=== PATIENT | male | born 1965 | race Hispanic/Latino ===

== ENCOUNTER 2018-07-13 08:39 | Emergency (ER) | payer OTHER ==
[2018-07-13] MEDS ORDERED: Adacel (T-DAP) 0.5 ML SYRINGE ONE (09:16)
--- NOTE | 2018-07-13 09:33 | RAD ---
RIGHT FOOT 3 VIEWS: HISTORY: Injury, right foot pain FINDINGS: No fracture-dislocation is seen. A small radiopaque density suspicious for foreign body is seen in th e soft tissues of the second digit at the medial aspect of the proximal metaphysis of the proximal phalanx.
[2018-07-13] MEDS ORDERED: CEFAZOLIN 1 GM VIAL ONE (09:38)
[2018-07-13] MEDS ORDERED: Ketorolac Tromethamine 30 MG/ML VIAL ONE (09:42)
[2018-07-13] MEDS ORDERED: Morphine 4 MG/ML VIAL ONE (09:42)
[2018-07-13 10:05] LABS: ALT (SGPT) 18 U/L (8-55); AST (SGOT) 22 U/L (5-34); Albumin 4.6 g/dL (3.5-5.0); Alkaline Phosphatase 76 U/L (40-150); Anion Gap 11 mmol/L (10-20); BUN (Urea Nitrogen) 11 mg/dL (8.4-25.7); Bilirubin, Total 0.6 mg/dL (0.2-1.2); Calc. Creatinine Clearance 0 mL/min (70-130); Calcium 9.5 mg/dL (7.8-10.44); Carbon Dioxide 23 mmol/L (22-29); Chloride 106 mmol/L (98-107); Estimated GFR-MDRD Greater than 90; Glucose 120 mg/dL (70-105); Potassium 4.2 mmol/L (3.5-5.1); Protein, Total 7.6 g/dL (6.0-8.3); Sodium 136 mmol/L (136-145)
[2018-07-13 10:11] LABS: #Eosinphils 0.2 thou/uL (0.0-0.7); #Lymphocytes 1.3 thou/uL (1.20-3.40); #Monocytes 0.5 thou/uL (0.11-0.59); #Neutrophils 1.9 thou/uL (1.40-6.50); %Eosinophils 5.8 % (0.0-10.0); %Lymphocytes 33.2 % (21.0-51.0); %Monocytes 11.4 % (0.0-10.0); %Neutrophils 48.6 % (42.0-75.0); Mean Corpuscular HGB CONC 34.9 g/dL (32.0-36.0); Mean Corpuscular Hemoglobin 31.8 pg (27.0-31.0); Mean Platelet Volume 8.5 fL (7.4-10.4); Platelet Count 185 thou/uL (130-400); Red Blood Cell (RBC) Count 5.03 mill/uL (4.70-6.10); White Blood Cell (WBC) Count 3.9 thou/uL (4.8-10.8)
[2018-07-13] MEDS ORDERED: Lidocaine 1% (PF) 30 ML VIAL ONE (11:02)
--- NOTE | 2018-07-13 11:34 | CON ---
DATE OF CONSULTATION: 07/13/2018 This is Mey Chris PA-C dictating a report for Anastacio Welsh MD. CONSULTING PHYSICIAN: Dr. Anastacio Welsh. REASON FOR CONSULTATION: Right foot injury. HISTORY OF PRESENT ILLNESS: This is a 53-year-old male, who presented to the emergency department today after an injury at work this morning when he states he dropped a chainsaw on his right foot. This cut through his shoe and then cut his foot. He reports difficulty with walking. Pain is worse with movement and relieved with rest. No numbness or tingling distally. PAST MEDICAL HISTORY: The patient denies. PAST SURGICAL HISTORY: The patient denies. SOCIAL HISTORY: The patient drinks everyday, approximately less than 5 drinks a day. He denies any illicit drug use. He does smoke cigarettes, approximately 1-2 cigarettes per day. He does construction work for a living. FAMILY HISTORY: Reviewed and noncontributory. REVIEW OF SYSTEMS: A 10-point review of systems conducted and otherwise negative except for stated above. PHYSICAL EXAMINATION: VITAL SIGNS: Blood pressure 127/78, pulse of 81, respiratory rate of 16, and O2 saturation of 97% on room air. GENERAL: The patient is awake and alert. He is sitting up in the ER on a stretcher. No family or friends present at bedside currently. The patient is primarily K[place]z speaking. A claims technician was used for communication purposes today. He is in no apparent distress. He is pleasant and cooperative with exam today. HEENT: Head is normocephalic and atraumatic. NECK: Supple. Trachea midline. LUNGS: Breathing nonlabored. EXTREMITIES: The right lower extremity was evaluated. On the dorsum of the foot, there are 2 lacerations. The 1st one is superficial overlying the MTP of the great toe. There is no active bleeding from this wound. This is merely superficial. The 2nd laceration is overlying the metatarsophalangeal joint in the 2nd toe. This is approximately 2 cm in length. This does extend into the joint. This has been irrigated. There was no active bleeding. I am able to palpate his extensor tendon. He is able to flex and extend against resistance. He does report some decreased sensation over the distal dorsal aspect of the 2nd toe. No nail bed injury. Remainder of extremities were evaluated and no other injuries are noted. IMAGING STUDIES: Radiographic findings were reviewed, including 3 views of the right foot, obtained in the emergency department today, show no evidence for acute fracture. There is no dislocation seen as well. A possible small radiopaque density is suspicious in the soft tissues. ASSESSMENT: Right dorsum of the foot laceration extending into the 2nd metatarsophalangeal joint without any tendon laceration. PLAN: At this time, I have discussed this case with Dr. Welsh as well as Dr. Wasserman. I have evaluated the patient. The patient may be thoroughly irrigated and laceration repaired in the emergency department. He will be placed on p.o. antibiotics and placed in a postoperative shoe. He may weightbear through the heel if it causes him pain to walk with a normal heel-to-toe pattern. We would like close followup with the patient. We have provided our clinic information. We would like to see him in the clinic next week for wound check. I have advised that he stop smoking in order for this wound to heal. I have also advised that he hold off on work until we re-evaluate him in 1 week. All questions have been answered by a way of a claims technician today. Job ID: [id number]
== END 2018-07-13 11:41 | disposition home or self-care (01) ==
LOC: ERS 08:39
DX: S96.121A Laceration of muscle and tendon of long extensor muscle of toe at ankle and foot level, right foot, initial encounter (principal); F17.210 Nicotine dependence, cigarettes, uncomplicated; W20.8XXA Other cause of strike by thrown, projected or falling object, initial encounter
CPT/HCPCS: 12001; 80053; 85025; 90471; 90715; 96374; 96375; J0690; J1885; J2001; J2270

== ENCOUNTER 2019-06-08 11:43 | Emergency (ER) | payer OTHER | END 2019-06-08 13:41 | disposition home or self-care (01) | LOC: ERS 11:43 | DX: Z03.89 Encounter for observation for other suspected diseases and conditions ruled out (principal); F17.210 Nicotine dependence, cigarettes, uncomplicated | CPT/HCPCS: 99281 ==